=== PATIENT | male | born 1985 | race Caucasian/White ===

== ENCOUNTER 2018-03-08 20:44 | Emergency (ER) | payer OTHER ==
[~2018-03-08] VITALS: Ht 175.3 cm; Wt 75.7 kg
[2018-03-08 20:50] VITALS: Ht 175.3 cm; Wt 75.7 kg
[2018-03-08 22:35] VITALS: BP 138/85
== END 2018-03-08 22:35 | disposition home or self-care (01) ==
LOC: ED 20:44
DX: S61.102A Unspecified open wound of left thumb with damage to nail, initial encounter (principal); R03.0 Elevated blood-pressure reading, without diagnosis of hypertension; W45.8XXA Other foreign body or object entering through skin, initial encounter; Y93.89 Activity, other specified; Y92.89 Other specified places as the place of occurrence of the external cause; Y99.8 Other external cause status
CPT/HCPCS: 90715; A4570